=== PATIENT | male | born 1960 | race Caucasian/White ===

== ENCOUNTER 2016-08-19 21:59 | Emergency (ER) | payer SELFPAY ==
[2016-08-19 22:39] VITALS: TEMP 97.6; BMI 28.2
--- NOTE | 2016-08-20 00:27 | EDPRACDOC ---
- General Information Chief Complaint: Headache Stated Complaint: HEAD PRESSURE Time Seen by Provider: 08/20/16 00:18 Mode Of Arrival: Car Home Medications: Home Medications Ketorolac Tromethamine 10 mg PO Q8H PRN #15 tab 03/24/16 Meclizine HCl [Antivert] 25 mg PO Q8H PRN #20 tab 03/24/16 Promethazine [Phenergan] 25 mg PO Q4-6H PRN #15 tab 03/24/16 Sumatriptan [Imitrex] 20 mg NS . PRN 20 Days 08/20/16 Allergies/Adverse Reactions: Allergies Allergy/AdvReac Type Severity Reaction Status Date / Time No Known Allergies Allergy Verified 08/19/16 22:39 - History of Present Illness Onset: 5 DAYS HPI: PATIENT HAS HAD EPISODES SINCE LAST APRIL IN WHICH HE FEELS A SWELLING IN LEFT PART OF HIS NECK FOLLOWED BY SEVERE PAIN ACROSS HIS HEAD FROM LEFT TO RIGHT. LASTS FOR HOURS. WORSE AFTER EXERTION. NOTES OCCASIONAL DIZZINESS AND NAUSEA Location: Reports: Parietal Pain Quality: Reports: Moderate, Throbbing, Like Previous Headaches Associated Signs and Symptoms: Reports: Occasional Headache, Nausea/Vomiting ED Past Medical History - History Reviewed Yes Nurses notes reviewed and agree except as marked Travel Outside of [place] in the Last 3 Months?: No - Patient Medical History GI/ History: Reports: IBD Psychological History: Denies: Depression Systemic History: Reports: Anemia - Family Medical History Reports: Cardiac Disorders - Social Medical History Smoking Status: Never smoker ETOH: None Substance Abuse: None Lives With: Family Lives In: Home EDM Review of Systems - Review of Systems ROS Negative Except as Marked: Yes All systems reviewed and were negative except as marked Constitutional: No Symptoms Reported. negative: Fever, Chills, Weakness, Fatigue, Loss of Appetite Eyes: No Symptoms Reported. negative: Redness, Blurred Vision, Double Vision, Discharge, Pain, Light Sensitive, Photophobia Ears: No Symptoms Reported. negative: Pain, Hearing Loss, Drainage, Ear Pulling Throat: No Symptoms Reported. negative: Pain, Swelling Nose: No Symptoms Reported. negative: Congestion, Bleeding, Discharge, Injection, Swelling, Deformity, Ecchymosis, Tender, Abrasion, Laceration Mouth: No Symptoms Reported. negative: Pain, Drooling Respiratory: No Symptoms Reported. negative: Cough, Brassy Cough, Barky Cough, Shortness of Breath, Wheezing, Hemoptysis Cardiovascular: No Symptoms Reported. negative: Chest Pain, Palpitations, Syncope, Edema, Orthopnea, PND, Skin Mottling, Cyanosis Gastrointestinal: Nausea. negative: Constipation, Diarrhea, Formula Intolerance , Melena, Pain, Vomiting Genitourinary: No Symptoms Reported. negative: Dysuria, Hematuria, Frequency, Discharge, Bleeding, Testicular Pain, Neurological: Dizziness, Headache. negative: Gait Difficulty, Numbness, Seizure , Speech Difficulty, Weakness Musculoskeletal: No Symptoms Reported. negative: Neck, Chestwall, Ribs, Back, Shoulder, Arm, Elbow, Forearm, Wrist, Hand, Pelvis, Hip, Femur, Knee, Leg, Ankle , Foot Integumentary: No Symptoms Reported. negative: Itching, Rash, Bruising, Wound Allergic/Immunologic: No Symptoms Reported. negative: Hives, Itching Hematologic: No Symptoms Reported. negative: Lymphadenopathy, Easy Bruising, Easy Bleeding Endocrine: No Symptoms Reported. negative: Weight Gain, Weight Loss Psychiatric: No Symptoms Reported. negative: Anxiety, Depression, Hallucinations, Insomnia, Suicidal - Physical Exam Constitutional: Alert (Awake), No apparent distress Oriented to: Time, Person, Place Last recorded Vital Signs: Last Vital Signs Temp 97.6 F 08/19/16 22:35 Pulse 61 08/19/16 22:35 Resp 20 08/19/16 22:35 BP 143/94 08/19/16 22:35 Pulse Ox 97 08/19/16 22:35 Oxygen Pulse Oxygen Saturation 97 O2 Device Room Air Oxygen Flow Rate Fraction of Inspired Oxygen ( FIO2) - HEENT Head: Normal ( normocephalic) Eye Exam: Normal (PERRL, EOMI, Sclera white) Oropharynx: Normal (Pharynx:Moist without exudate,Gums-no swelling) Tympanic Membrane: Normal ENT EAC: Normal TMJ: Normal Nose: No Symptoms Reported (septum midline) Neck: Normal (FROM, trachea at midline) - Respiratory/Cardiovascular Respiratory: Normal - CTA (BBS clear to auscultation without adventitious sounds ) Cardiovascular: Normal (RRR without murmur, gallop or rub) - GI Auscultation: Normal (NABS) Palpation: Normal (Soft,No rebound or guarding, non distended) Tenderness: Non tender Cheema's Sign: Negative - Musculoskeletal Back: Normal (Non-Tender) Extremities: Normal (Normal tone, Pulses 2+ No cyanosis or edema, FROM) - Integumentary Skin: Normal, Warm, Dry Lymphatics: Normal (no adenopathy) - Neurologic Memory Impaired: Normal Motor Function: Normal (Normal tone, Pulses 2+ No cyanosis or edema, FROM) Cranial Nerve: Normal (CN II-X11 intact sensation, strength 5/5) Cerebellar: Normal Mood Description: Normal Perception: Normal Decision Time to Discharge: 02:48 - Departure Yes I personally saw and evaluated the patient. Disposition: Home Condition: Good Final Diagnosis: Vascular headache Instructions: Migraine Headache (ED) Education/Counseling Given To: Patient, Family Member Education/Counseling Given Regarding: Diagnosis, Treatment, Prognosis, Follow Up Referrals: Veronica Acosta MD [Primary Care Provider] - One Week Prescriptions: New Sumatriptan [Imitrex] 20 mg NS . PRN 20 Days PRN Reason: Headache No Action Ketorolac Tromethamine 10 mg PO Q8H PRN #15 tab PRN Reason: Pain Meclizine HCl [Antivert] 25 mg PO Q8H PRN #20 tab PRN Reason: Vertigo Promethazine [Phenergan] 25 mg PO Q4-6H PRN #15 tab PRN Reason: Nausea/Vomiting
[2016-08-20] MEDS ORDERED: Pharmacy Review for Metformin - IV Contrast Given SCH (01:00)
[2016-08-20] MEDS: OXYCODONE HCL 5 MG TABLET PO ONE ×2 (02:21→02:24)
--- NOTE | 2016-08-20 02:34 | DIRPT ---
CLINICAL DATA: HEADACHE FOR 1 WEEK. LEFT-SIDED NECK PAIN AND SWELLING BELOW THE JAW LINE. EXAM: CT HEAD WITHOUT CONTRAST CT NECK WITH CONTRAST TECHNIQUE: Contiguous axial images were obtained from the base of the skull through the vertex without contrast. Multidetector CT imaging of the neck was performed using the standard protocol without intravenous contrast. COMPARISON: 03/24/2016 FINDINGS: CT HEAD FINDINGS Skull and Sinuses:Negative for fracture or destructive process. The visualized mastoids, middle ears, and imaged paranasal sinuses are clear. Visualized orbits: Negative. Brain: No evidence of acute infarction, hemorrhage, hydrocephalus, or mass lesion/mass effect. Low-density in left centrum semiovale has been present since 2013 and is compatible with a chronic nonspecific small-vessel insult. No progressive or generalized white matter disease suggestive of a demyelinating process. Dilated perivascular space below the right putamen. CT NECK FINDINGS No suspicious asymmetry or enhancement in the pharynx or larynx. There is a right palatine tonsillith and left palatnie fossa retention cyst. Unremarkable appearance of the salivary and thyroid glands. No enlarged or necrotic appearing lymph nodes. No soft tissue inflammation or asymmetric platysma thickening. The major cervical vessels are patent. No acute osseous finding. C5-6 degenerative disc disease with uncovertebral spurs causing bilateral foraminal stenosis. IMPRESSION: 1. Stable head CT since 2013. No acute finding to explain headache. 2. No explanation for neck pain. Electronically Signed By: Az De Leon M.D. On: 08/20/2016 02:31
[2016-08-20] MEDS ORDERED: SUMATRIPTAN SUCCINATE 6 MG/0.5 ML VIAL SQ ONE (02:49)
[2016-08-20 03:32] VITALS: BP 160/91; PULSE 55
== END 2016-08-20 03:30 | disposition home or self-care (01) ==
LOC: ED 21:59
DX: R51 Headache (principal)
CPT/HCPCS: 70450; 70491; 96372; 99283; A9698; J3030; J3490